=== PATIENT | male | born 1955 | race Caucasian/White ===

== ENCOUNTER 2020-08-19 01:50 | Inpatient (IN) | payer MEDICAID ==
[~2020-08-19] VITALS: Ht 170.2 cm; Wt 52.2 kg
--- NOTE | 2020-08-19 02:20 | NUR ---
Patient refused to take water for swallowing eval. Seen and examined by Dr. Espino.
[2020-08-19] MEDS ORDERED: IV NORMAL SALINE 1000 ML BAG IV ONE (02:30)
[2020-08-19 02:50] LABS: EOSINOPHILS % (AUTO) 0.4 % (0.0-7.0); HEMATOCRIT 41.4 % (36.7-47.1); HEMOGLOBIN 14.1 g/dL (12.5-16.3); LYMPHOCYTES # (AUTO) 1.7 K/uL (20.0-40.0); LYMPHOCYTES % (AUTO) 34.6 % (20.5-51.5); MEAN CORPUSCULAR HEMOGLOBIN 30.6 uug (23.8-33.4); MEAN CORPUSCULAR HGB CONC 34 g/dL (32.5-36.3); MEAN CORPUSCULAR VOLUME 90.3 fL (73.0-96.2); MONOCYTES # (AUTO) 0.3 K/uL (2.0-10.0); MONOCYTES % (AUTO) 6.8 % (0.0-11.0); NEUTROPHILS # (AUTO) 2.8 K/uL (1.8-8.9); NEUTROPHILS % (AUTO) 57.2 % (38.5-71.5); PLATELET COUNT (AUTO) 194 K/uL (152-348); RED BLOOD CELL COUNT(AUTO) 4.59 MIL/uL (4.06-5.63); WHITE BLOOD COUNT (AUTO) 4.9 K/uL (3.6-10.2)
[2020-08-19 02:52] LABS: CREATININE 1.1 mg/dL (0.6-1.3); POTASSIUM 4.3 mmol/L (3.5-5.1)
[2020-08-19 02:58] LABS: BILIRUBIN,DIRECT 0.2 mg/dL (0.0-0.2); TOTAL PROTEIN, SERUM 6.8 g/dL (6.4-8.2)
[2020-08-19] MEDS ORDERED: BUPR150T10 PO (03:32)
[2020-08-19] MEDS ORDERED: APIX5TAB PO (03:32)
[2020-08-19] MEDS ORDERED: MIRT15TA7 PO (03:32)
[2020-08-19] MEDS ORDERED: MIDO5TAB5 PO (03:32)
--- NOTE | 2020-08-19 04:15 | NUR ---
report given to juan jose about history , medications given , mental status , belongings status , sister at bedside
[2020-08-19 05:10] VITALS: BP 107/55
[2020-08-19] MEDS ORDERED: MAGNESIUM HYDROXIDE 30 ML LIQUID UDC PO PRN (05:30)
[2020-08-19] MEDS ORDERED: ZOLPIDEM 5 MG TABLET PO PRN (05:30)
[2020-08-19] MEDS ORDERED: Z GUARD REMEDY PASTE 57 GM TUBE TOP PRN (05:30)
[2020-08-19] MEDS ORDERED: ONDANSETRON 4 MG/2 ML VIAL IV PRN (05:30)
[2020-08-19] MEDS ORDERED: ACETAMINOPHEN 325 MG TABLET PO PRN (05:30)
[2020-08-19] MEDS: IV NS 1000 ML 1,000 ML IV PRN ×2 (05:41→21:17)
--- NOTE | 2020-08-19 06:08 | NUR ---
Received a 65 yr old male from ER with admitting diagnosis of dehydration and generalized weakness. Patient alert and oriented x2-3 accompanied by sister from home. Was brought in because of increasing loss of appetite, generalized weakness. Admitting diagnosis is dehydration. AAOx 2-3, patient not a good historian, dont feel like answering questions, sister able to provide answers for admission. Lungs CTA. Able to follow simple commands. Hx of depression, PE in the past and hypotension. Patient also was constipated per sister x2 wks because of not eating. On telemetry, patient sinus machelle HR 45. Skin intact with some redness on the coccyx are and bilateral heels, elevated up on pillow. Incontinent of urinex2, kept clean and dry. #20 Rt heplock, NSS started @ 75cc/hr Will monitor patient. Fall precautions maintained. Siderails up for safety. VSS.
[2020-08-19] MEDS: PANTOPRAZOLE SODIUM 40 MG TABLET.DR PO SCH (06:33)
[2020-08-19 08:09] VITALS: BP 121/62
[2020-08-19] MEDS: APIXABAN 5 MG TABLET PO SCH ×2 (08:27→16:57)
[2020-08-19] MEDS: MIDODRINE HCL 5 MG TABLET PO SCH ×2 (08:28→16:57)
[2020-08-19] MEDS ORDERED: buPROPion SR 150 MG TABLET.SA PO SCH (09:00)
[2020-08-19] MEDS ORDERED: BUPR75TA8 PO (09:45)
[2020-08-19] MEDS: buPROPion 75 MG TABLET PO SCH (11:00)
[2020-08-19 11:35] VITALS: BP 115/66
[2020-08-19 16:00] VITALS: BP 111/68
[2020-08-19 20:00] VITALS: BP 116/61
[2020-08-19] MEDS: ENOXAPARIN SODIUM 60 MG/0.6 ML DISP.SYRIN SQ SCH (20:03)
[2020-08-19] MEDS: MIRTAZAPINE 15 MG TABLET PO SCH (20:03)
[2020-08-20 04:00] VITALS: BP 92/48
--- NOTE | 2020-08-20 06:09 | NUR ---
Pt slept throughout the night. Refused all medications provided to him. Was encouraged to eat or drink some water, pt refused. Denies pain or SOB. Safety and comfort provided to patient, call light within reach. No other issues or concerns at this time, will endorse to day shift.
[2020-08-20 06:50] LABS: BASOPHILS # (AUTO) 0.1 K/uL (0.0-8.0); BASOPHILS % (AUTO) 1.3 % (0.0-2.0); EOSINOPHILS % (AUTO) 0.4 % (0.0-7.0); HEMATOCRIT 40.4 % (36.7-47.1); HEMOGLOBIN 13.6 g/dL (12.5-16.3); LYMPHOCYTES # (AUTO) 1.8 K/uL (20.0-40.0); LYMPHOCYTES % (AUTO) 36.8 % (20.5-51.5); MEAN CORPUSCULAR HEMOGLOBIN 30.5 uug (23.8-33.4); MEAN CORPUSCULAR HGB CONC 34 g/dL (32.5-36.3); MEAN CORPUSCULAR VOLUME 90.5 fL (73.0-96.2); MONOCYTES # (AUTO) 0.3 K/uL (2.0-10.0); MONOCYTES % (AUTO) 6.5 % (0.0-11.0); NEUTROPHILS # (AUTO) 2.7 K/uL (1.8-8.9); PLATELET COUNT (AUTO) 193 K/uL (152-348); RED BLOOD CELL COUNT(AUTO) 4.46 MIL/uL (4.06-5.63); WHITE BLOOD COUNT (AUTO) 4.9 K/uL (3.6-10.2)
[2020-08-20] MEDS: PANTOPRAZOLE SODIUM 40 MG TABLET.DR PO SCH (06:51)
[2020-08-20 06:55] LABS: MAGNESIUM 2.1 mg/dL (1.8-2.4)
--- NOTE | 2020-08-20 08:15 | NUR ---
RECEIVED PATIENT IN BED AWAKE ALERT TO SELF NON VERBAL ALL NEEDS ANTICIPATED AND SATISFIED TOTALLY DEPENDENT FOR ALL ADL TURNED AND REPOSITIONED Q2H FOR COMFORT.REMAIN ON IVF OF NS AT 75 ML/HR WITH S/S OF INFILTERATION AT THIS TIME.PATIENT REFUSED TO TAKE MEDICATIONS AND REFUSED TO EAT HIS BREAKFAST DESPITE ENCOURAGEMENTS AND ASSISTANCE.MENTAL UNIT CALLED BY THE ASSISTANT PROFESSOR OF FORESTRY TO REMIND THEM THAT PATIENT HAS A PSYCH EVAL WITH DR NICOLE MESSAGE LEFT WITH THE SECURITY ASSURANCE SPECIALIST.
[2020-08-20] MEDS: MIDODRINE HCL 5 MG TABLET PO SCH ×2 (08:49→16:59)
[2020-08-20] MEDS: buPROPion 75 MG TABLET PO SCH (08:49)
[2020-08-20] MEDS: ENOXAPARIN SODIUM 60 MG/0.6 ML DISP.SYRIN SQ SCH ×2 (08:49→20:41)
[2020-08-20] MEDS ORDERED: buPROPion 75 MG TABLET PO SCH (09:00)
--- NOTE | 2020-08-20 09:08 | NUR ---
PATIENT C/O ABDOMINAL PAIN MEDICATED WITH DILAUDID ORDERED MADE COMFORTABLE WILL CONTINUE TO OBSERVE. Addendum: 08/20/20 at 1515 by VANDANA CHÁVEZ RN ERROR WRONG PATIENT
--- NOTE | 2020-08-20 10:00 | NUR ---
PATIENTS SISTER HERE AND STATED WANTS TO TALK TO THE DOCTOR RE HER BROTHERS CONDITION AND I NOTIFIED HER THAT DR VO WILL BE HERE LATER SO SHE DECIDED TO [facility] AWAITING FOR RETURN CALL
[2020-08-20] MEDS: IV NS 1000 ML 1,000 ML IV PRN (10:13)
[2020-08-20] MEDS ORDERED: OLANZAPINE 10 MG VIAL IM ONE (10:30)
--- NOTE | 2020-08-20 10:30 | NUR ---
DR VO HERE SEEN PATIENT SPOKE WITH PATIENTS SISTER WITH NEW ORDERS AND NOTED.
[2020-08-20] MEDS: IV D5/ 0.9% NACL 1,000 ML IV PRN ×2 (10:48→23:58)
--- NOTE | 2020-08-20 10:48 | NUR ---
MEDICATED WITH ZYPREXA ORDERED SISTER AT THE BEDSIDE AT THIS TIME.
[2020-08-20 11:00] VITALS: BP 92/57
[2020-08-20 11:11] LABS: THYROID STIMULATING HORMONE 1.799 mIU/mL (0.358-3.740)
[2020-08-20 16:00] VITALS: BP 129/73
--- NOTE | 2020-08-20 17:33 | NUR ---
MORE AWAKE AND EYES OPEN NODING HEAD WHEN ASKED IF HE WAS COLD BUT CONTINUES TO REFUSE HIS MEDICATIONS AND MEALS AT THIS TIME STILL AWAITING FOR PATIENT TO BE SEEN AND EVALUATED BY THE PSYCHIATRIST ORDERED.
[2020-08-20 20:09] VITALS: BP 109/60
[2020-08-20] MEDS: MIRTAZAPINE 15 MG TABLET PO SCH (20:48)
--- NOTE | 2020-08-21 05:22 | NUR ---
Pt slept throughout the night. Denies pain or difficulty breathing. D/C tele and now medsurg. Encouraged patient to take medications and to eat or drink something, patient refused. Was able to get one spoonful of applesauce in patient's mouth, but he spit it out. IV intact and ordered fluids running, pt tolerating well. Bed is locked and in lowest position, call light within reach. Pt checked on periodically throughout the night. No other issues or concerns at this time, will endorse to day shift.
[2020-08-21] MEDS: PANTOPRAZOLE SODIUM 40 MG TABLET.DR PO SCH (06:20)
--- NOTE | 2020-08-21 07:41 | NUR ---
Patient sleeping but arouses to tactile stimuli. Non verbal. IV site intact and patent tolerating Iv hydration. In no acute distress. Safety maintained. Kept comfortable. Will continue to monitor.
[2020-08-21] MEDS: buPROPion 75 MG TABLET PO SCH (09:00)
[2020-08-21] MEDS: MIDODRINE HCL 5 MG TABLET PO SCH ×2 (09:00→17:00)
[2020-08-21] MEDS: ENOXAPARIN SODIUM 60 MG/0.6 ML DISP.SYRIN SQ SCH ×2 (09:00→15:25)
[2020-08-21 09:10] VITALS: BP 110/66
--- NOTE | 2020-08-21 09:50 | NUR ---
Patient refused medications this morning despite encouragement from staff. Risks and benefits explained but patient keep shaking his head.
--- NOTE | 2020-08-21 10:34 | NUR ---
Left voicemail for Dr. Lei psych to come see the patient as soon as possible. Will follow up.
[2020-08-21 11:57] VITALS: BP 123/71
[2020-08-21] MEDS ORDERED: OLANZAPINE ZYDIS 5 MG TAB.RAPDIS PO SCH (12:15)
[2020-08-21] MEDS ORDERED: OLANZAPINE 10 MG VIAL IM PRN (12:15)
[2020-08-21] MEDS: OLANZAPINE ZYDIS 5 MG TAB.RAPDIS PO SCH ×3 (12:46→21:00)
[2020-08-21] MEDS: IV D5/ 0.9% NACL 1,000 ML IV PRN (15:20)
--- NOTE | 2020-08-21 15:33 | NUR ---
Sister is visiting the patient and requested to give patient's lovenox. Patient agreed.
[2020-08-21 16:00] VITALS: BP 121/71
--- NOTE | 2020-08-21 19:20 | NUR ---
Patient awake and responsive. In no acute distress. LAC IV site intact and patent Iv hydration tolerated. Patient refused dinner despite encouragement from staff. Patient refused medications despite encouragement from both sister and staff. Patient sleeps on and off. No episode of agitation. Safety measures maintained. Patient is comfortable. Needs attended. Endorsed accordingly.
[2020-08-21 20:00] VITALS: BP 109/66
--- NOTE | 2020-08-21 21:00 | NUR ---
PATIENT AWAKE VERBALLY RESPONSIVE, GIVEN PO MEDICATIONS, BUT SPITS OUT, REFUSED MEDICATIONS. PATIENT VERY DEPRESSED, SISTER AT BEDSIDE, AWAKE OF PATIENT NON COMPLIANT WITH MEDICATIONS, AND REFUSING TO EAT. CONT TO MONITOR.
[2020-08-22] MEDS: ENOXAPARIN SODIUM 60 MG/0.6 ML DISP.SYRIN SQ SCH ×3 (00:43→20:06)
[2020-08-22] MEDS: IV D5/ 0.9% NACL 1,000 ML IV PRN ×2 (03:00→18:04)
[2020-08-22 04:03] VITALS: BP 107/57
--- NOTE | 2020-08-22 05:36 | NUR ---
PATIENT SLEEP INTERMITTENTLY, DENIES ANY PAIN AT THIS TIME. PATIENT HARDLY ANSWER OR INTERACT WITH STAFF. PATIENT USES URINAL FOR BLADDER ELIMINATIONS, PATIENT SPOKE TO THE BUS COMPANY MANAGER IN PORTUGUESE LANGUAGE STATING THAT "YOU GUYS DON'T UNDERSTAND ME AND I CANNOT EXPLAIN WHAT HE GOING THROUGH", PATIENT EXHIBIT WITHDRAWN BEHAVIOR, CONT TO MONITOR.
--- NOTE | 2020-08-22 05:56 | NUR ---
PATIENT CONTINUE TO REFUSE MEDICATIONS, OPEN HIS MOUTH BUT SPITS OUT MEDICATIONS, EXPLAINED RISK AND BENEFIT BUT NOT EFFECTIVE, CONT TO ENCOURAGE.
[2020-08-22] MEDS: PANTOPRAZOLE SODIUM 40 MG TABLET.DR PO SCH (06:14)
[2020-08-22 06:38] LABS: BASOPHILS % (AUTO) 0.9 % (0.0-2.0); EOSINOPHILS % (AUTO) 0.9 % (0.0-7.0); HEMATOCRIT 46.1 % (36.7-47.1); HEMOGLOBIN 15.5 g/dL (12.5-16.3); LYMPHOCYTES % (AUTO) 40.8 % (20.5-51.5); MEAN CORPUSCULAR HEMOGLOBIN 30.4 uug (23.8-33.4); MEAN CORPUSCULAR HGB CONC 34 g/dL (32.5-36.3); MEAN CORPUSCULAR VOLUME 90.4 fL (73.0-96.2); MONOCYTES # (AUTO) 0.3 K/uL (2.0-10.0); MONOCYTES % (AUTO) 6.5 % (0.0-11.0); NEUTROPHILS # (AUTO) 2.5 K/uL (1.8-8.9); NEUTROPHILS % (AUTO) 50.9 % (38.5-71.5); PLATELET COUNT (AUTO) 160 K/uL (152-348); RED BLOOD CELL COUNT(AUTO) 5.09 MIL/uL (4.06-5.63)
[2020-08-22 06:57] LABS: BILIRUBIN,TOTAL 0.9 mg/dL (0.2-1.0); CREATININE 0.9 mg/dL (0.6-1.3); MAGNESIUM 1.9 mg/dL (1.8-2.4); PHOSPHOROUS 2.4 mg/dL (2.5-4.9); POTASSIUM 3.2 mmol/L (3.5-5.1); TOTAL PROTEIN, SERUM 5.9 g/dL (6.4-8.2)
--- NOTE | 2020-08-22 07:40 | NUR ---
Patient alert and oriented, awake, depressed and guarded refusing to answer questions. In no acute distress. Iv hydration ongoing tolerated. No agitation noted. Safety measures maintained. Kept comfortable. Call light in reach. Will continue to monitor.
[2020-08-22 08:39] VITALS: BP 106/70
[2020-08-22] MEDS: OLANZAPINE ZYDIS 5 MG TAB.RAPDIS PO SCH ×2 (08:42→17:00)
[2020-08-22] MEDS: MIDODRINE HCL 5 MG TABLET PO SCH ×2 (08:47→17:00)
[2020-08-22] MEDS: VENLAFAXINE XR 75 MG TAB.ER.24H PO SCH (08:47)
[2020-08-22] MEDS ORDERED: POTASSIUM CHLORIDE 20 MEQ TAB.PRT.SR PO ONE (09:30)
--- NOTE | 2020-08-22 09:43 | NUR ---
Patient refused breakfast this morning. Encouraged by staff but only took a small sip of water. Patient agreed to take zyprexa and lovenox this morning but refused the rest of his medications. Continue to be monitored.
[2020-08-22] MEDS: POTASSIUM CHLORIDE 50 ML IV SCH ×4 (11:48→15:09)
--- NOTE | 2020-08-22 11:50 | NUR ---
Seen and examined by Dr. Del Toro with new orders noted.
[2020-08-22] MEDS ORDERED: OLANZAPINE ZYDIS 5 MG TAB.RAPDIS PO SCH (12:00)
--- NOTE | 2020-08-22 15:43 | NUR ---
Clinical Social Work Note Discussed case with Dr Del Toro who consulted on the case. Patient is regressed and has some psychotic symptoms for which he is being prescribed Zyprexa. Tried to speak with patient who is withdrawn and not very communicative. Patient is unlikely to be accepted at an adult psychiatric facility due to his poor labs. and poor intake. Patient will need to go home with family once he starts to improve. Medication regimen can be continued at home with family. Since patient will not cooperate with evaluation it is unclear if he is depressed vs schizophrenic. Family are supportive so need to care for him at home once he is medically stable. Patient will be referred to outpatient facilities. If he wants voluntary treatment at [facility] at some point, this can be considered. He has not epxressed suicidal ideation so is not meeting danger to self criteria. Presentation is similar to that of schizophrenia based on limited information. Major depression with psychotic features has not been ruled out. Patient will not be accepted at an adult psychiatric unit for several reasons. Plan: Discharge home under family supervision once patient is medically clear. Patient will need outpatient psychiatric follow up to monitor medication.
[2020-08-22] MEDS ORDERED: NEUTRA PHOS PACKET PO ONE (15:45)
--- NOTE | 2020-08-22 15:46 | NUR ---
Estate Planner note: 2:40pm: This social science instructor was informed that patient's sister Rosy wanted to speak with this social science instructor. This International Student Counselor met with Rosy, who had some questions about conservatorship and Medicare. Rosy stated that she is patient's POA, but also wanted to apply for conservatorship. This social science instructor asked for a copy of the patient's healthcare directive, and Rosy stated she will bring the healthcare directive tomorrow. This social science instructor stated that if Rosy is POA, then conservatorship may not be necessary, but this social science instructor can still provide information, if necessary. This social science instructor will also provide Rosy with information on Medicare benefits and how to apply. Rosy stated that patient was brought to the ED on 08/19/20. Per ED physician's notes, patient's family decided to call 911 after the patient had not been eating for a month,, had gotten weak and had lost weight. Rosy stated that patient was living in [place] and had his own business, was independent. Rosy stated that last July, patient lost his business and that caused him to get depressed. Rosy stated that she moved the patient out to [place] over the summer in order to take care of him, and that patient has been living with his sister. Patient has had recent hospitalizations, most recently at [facility] for PE. Rosy stated stated that for the past 3 months, patient has been receiving psychiatric care for Depression by Dr. Bright at [facility], . Patient is , and does not have any children. Besides Rosy, patient has a brother in [facility], and another brother who lives locally but they are estranged from. Patient's mother, who is in her 90's, is also alive and lives with the brother that patient is estranged from. Patient's sister Rosy requested to speak with patient's physician. This social science instructor informed aletha Keller of this request. PLAN: This social science instructor will obtain a copy of patient's healthcare directive from patient's sister. This social science instructor will provide patient's sister with information on Medicare and conservatorship.
[2020-08-22 16:00] VITALS: BP 115/67
--- NOTE | 2020-08-22 19:25 | NUR ---
Patient resting in bed awake and responsive to stimuli. No respiratory distress. Denies pain or discomfort. Patient's sister has been visiting him since lunch time and continue to encourage him to eat but he refuses. He ate 2 ice cream for lunch but nothing else after. Patient refused pm medications. Risks and benefits explained. IV on left ac ongoing and tolerated. In no acute distress. Endorsed accordingly.
[2020-08-22 20:00] VITALS: BP 113/77
--- NOTE | 2020-08-22 20:30 | NUR ---
Received patient in bed resting. Sister at bedside. Awake and alert, pressures speech and flat affect. Compliant with Lovenox injection. Denies pain and discomfort at this time. Left AC IV patent and intact. Safety measures in place.
[2020-08-23 05:20] VITALS: BP 115/68
[2020-08-23] MEDS: PANTOPRAZOLE SODIUM 40 MG TABLET.DR PO SCH (06:19)
[2020-08-23 09:46] VITALS: BP 108/68
[2020-08-23] MEDS: OLANZAPINE ZYDIS 5 MG TAB.RAPDIS PO SCH ×2 (09:48→12:43)
[2020-08-23] MEDS: VENLAFAXINE XR 75 MG TAB.ER.24H PO SCH (09:48)
[2020-08-23] MEDS: MIDODRINE HCL 5 MG TABLET PO SCH ×2 (09:48→17:25)
[2020-08-23] MEDS: ENOXAPARIN SODIUM 60 MG/0.6 ML DISP.SYRIN SQ SCH ×2 (09:52→20:54)
[2020-08-23] MEDS: MEGESTROL ACETATE 400 MG/10 ML LIQUID UDC PO SCH (09:59)
--- NOTE | 2020-08-23 11:10 | NUR ---
received report on pt, in bed resting, on room air, no signs of distress, no reports of pain at this time, call light within reach, family at bedside. bed low and locked, pt has been refusing medications per RN. will continue with plan of care
[2020-08-23 11:33] VITALS: BP 119/72
[2020-08-23 14:01] LABS: CREATININE 0.8 mg/dL (0.6-1.3); POTASSIUM 3.7 mmol/L (3.5-5.1)
--- NOTE | 2020-08-23 14:54 | NUR ---
Service Rig Operator note: This JOURNALISM INTERNSHIP followed up with patient's sister Rosy today. Rosy brought in a copy of patient's healthcare directive, and this JOURNALISM INTERNSHIP placed a copy of it in patient's chart. This JOURNALISM INTERNSHIP also discussed discharge plans with the patient's sister, and patient's sister stated that she would want for patient to be transferred to an inpatient psychiatric hospital. This JOURNALISM INTERNSHIP discussed with patient's sister the eligibility criteria for an inpatient psychiatric hospital, and informed the sister that at this time patient's level of care is penitentiary and therefore he would not qualify for inpatient psychiatric hospitalization in his current condition. Patient's sister also discussed obtaining additional health insurance, such as Medicare, and this JOURNALISM INTERNSHIP provided patient with information on how to apply for Medicare, and www.socialsecurity.gov. Patient's sister also stated that she would look into other private insurance too. This JOURNALISM INTERNSHIP discussed alternative discharge options, given patient's level of care needs at this time, and patient's sister stated that she would not want patient to go to a SNF or any other facility, but instead she will be taking the patient home. Above information was relayed to B2B Managed Service Sales Exec Cristina and SS Director Karley Cao. Service Rig Operator will continue to remain available.
--- NOTE | 2020-08-23 15:06 | NUR ---
Clinical Social Work Note Met with patient who is somewhat more responsive than yesterday. Patient's sister was present in the room and reports that pt was on Latuda in the past and then Wellbutrin ( unknown dose). He did well on the latter medication. She says patient is suspicious of any food that is not sealed. he " does not want anything that has been touched". Sister say she wants to take patient home when he is discharged. She asked how to apply for Medicare and this rewriter gave her the [phone] number to apply by phone. Spoke with Dr Del Toro who ordered Zyprexa IM since pt is spitting out Zydis per Yu RN. Patient clearly is paranoid but alert and oriented x3. he does not appear to be responding to internal stimuli at time of evaluation. Pt is [place] but speaks fluent [place]. Sister is caring and involved. She says pt sees Dr Rizo at [facility] ([phone]) and would like Dr Del Toro to speak with him. Advised Dr Del Toro of this.
[2020-08-23] MEDS: OLANZAPINE 10 MG VIAL IM SCH ×2 (15:09→21:02)
[2020-08-23 15:40] VITALS: BP 105/71
[2020-08-23] MEDS: NUTRISOURCE FIBER 4 GM PACKET PO SCH (17:25)
--- NOTE | 2020-08-23 18:46 | NUR ---
pt resting in bed, ate 25% of his dinner and medications were given as ordered. Sister, Rosy, is at bedside. pt a/ox2, pt on urvashi air, no signs of distress, no reports of pain at this time. pt takes medications crushed and given with food. pt voids via urinal at bedside, IV access on the left AC infusing D5NS at 80cc. all medications given as ordered, call light within reach, bed low and locked, safety precautions in place, will endorse to oncoming nurse.
--- NOTE | 2020-08-23 19:30 | NUR ---
Received patient lying in bed. AOx2-3 only with periods of confusion. Denies any pain or SOB. Still withdrawn. IV site on right FA intact and patent. IVF infusing. Needs assessed and attended to. Safety measure initiated and call bel within reached. Continue to monitor.
[2020-08-23 20:05] VITALS: BP 101/61
--- NOTE | 2020-08-23 20:55 | NUR ---
Patient sister into visit and brought dome belongings and placed on belongings list by PEG Quintanilla.
[2020-08-23] MEDS: IV D5/ 0.9% NACL 1,000 ML IV PRN (22:21)
[2020-08-24 04:10] VITALS: BP 114/64
[2020-08-24] MEDS: PANTOPRAZOLE SODIUM 40 MG TABLET.DR PO SCH (06:00)
--- NOTE | 2020-08-24 06:13 | NUR ---
Patient AOx2-3 with periods of confusion. In no acute distress. Denies any pain or SOB. IV site on right FA remains intact and patent. Needs assessed and attended to. Safety measure maintained and call martinez within reached.
[2020-08-24 06:52] LABS: BASOPHILS % (AUTO) 1.2 % (0.0-2.0); EOSINOPHILS % (AUTO) 0.8 % (0.0-7.0); HEMATOCRIT 43.6 % (36.7-47.1); HEMOGLOBIN 14.4 g/dL (12.5-16.3); LYMPHOCYTES # (AUTO) 1.9 K/uL (20.0-40.0); LYMPHOCYTES % (AUTO) 44.3 % (20.5-51.5); MEAN CORPUSCULAR HGB CONC 33 g/dL (32.5-36.3); MEAN CORPUSCULAR VOLUME 90.9 fL (73.0-96.2); MONOCYTES # (AUTO) 0.3 K/uL (2.0-10.0); MONOCYTES % (AUTO) 6.5 % (0.0-11.0); NEUTROPHILS % (AUTO) 47.2 % (38.5-71.5); PLATELET COUNT (AUTO) 157 K/uL (152-348); WHITE BLOOD COUNT (AUTO) 4.3 K/uL (3.6-10.2)
[2020-08-24 07:08] LABS: CREATININE 0.8 mg/dL (0.6-1.3); MAGNESIUM 1.9 mg/dL (1.8-2.4); PHOSPHOROUS 2.4 mg/dL (2.5-4.9); POTASSIUM 3.1 mmol/L (3.5-5.1)
--- NOTE | 2020-08-24 07:45 | NUR ---
Patient received in bed with eyes open and is speaking to himself in various languages. Alert and oriented x2. Patient is on RA with no shortness of breath or difficulty breathing. Patient has a right forearm 20G running D5NS at 80 ml/h as ordered with no s/s of redness or swelling. Bed alarm is on and fall precautions are in place. Patient states he has no discomforts at this time. Call martinez and personal belongings within easy reach. Will continue to monitor.
[2020-08-24] MEDS: VENLAFAXINE XR 75 MG TAB.ER.24H PO SCH (08:35)
[2020-08-24] MEDS: OLANZAPINE 10 MG VIAL IM SCH (08:44)
[2020-08-24] MEDS: ENOXAPARIN SODIUM 60 MG/0.6 ML DISP.SYRIN SQ SCH ×2 (08:50→20:24)
--- NOTE | 2020-08-24 08:50 | NUR ---
Pt refused oral meds this morning. Was educated on the medications, but continued to refuse. Pt barely ate any of his breakfast and was encouraged to eat and drink more. Patients sister called and stated that she will be coming in later and that she will try to feed him. Informed kitchen that patient requires packaged food, as he will refuse any food that is not fully sealed.
[2020-08-24] MEDS: MIDODRINE HCL 5 MG TABLET PO SCH ×2 (08:57→17:00)
[2020-08-24] MEDS: NUTRISOURCE FIBER 4 GM PACKET PO SCH ×4 (08:58→17:00)
[2020-08-24] MEDS: MEGESTROL ACETATE 400 MG/10 ML LIQUID UDC PO SCH (08:59)
[2020-08-24] MEDS: POTASSIUM CHLORIDE 20 MEQ TAB.PRT.SR PO SCH ×3 (11:11→12:16)
[2020-08-24] MEDS: IV D5/ 0.9% NACL 1,000 ML IV PRN (11:24)
[2020-08-24 11:49] VITALS: BP 107/60
[2020-08-24] MEDS: NEUTRA PHOS PACKET PO ONE ×2 (12:00→12:16)
--- NOTE | 2020-08-24 13:00 | NUR ---
patient refused oral meds tried to give but spit them out. was educated regarding importance of meds, but still refused them. sister at bedside. call light within reach will continue to monitor. seen by Dr. Del Toro with new orders.
[2020-08-24] MEDS: HALOPERIDOL LACTATE 5 MG/1 ML VIAL IM SCH ×3 (15:15→20:23)
[2020-08-24 15:53] VITALS: BP 112/63
--- NOTE | 2020-08-24 18:34 | NUR ---
pt stood up out of bed 4 times in the past hour, pt unsure of what he wanted and would sit back in bed. this last time, pt asked to use the restroom. pt walked to restroom slowly with RN assist, and pt also brushed his own teeth. bed low and locked, family at bedside, bed alarm on. will continue to monitor.
--- NOTE | 2020-08-24 18:42 | NUR ---
patient awake in bed, no complains of any pain or discomfort, no sob noted at this time. safety precautions in place. call light kept within reach. will report to oncoming nurse.
--- NOTE | 2020-08-24 19:30 | NUR ---
AOx2-3 only with periods of confusion. Sister at bedside. Denies any pain or SOB. IV site on right FA intact and patent. IVF infusing. Needs assessed and attended to. Safety measure initiated and call bel within reached. Continue to monitor.
[2020-08-24 20:05] VITALS: BP 107/63
[2020-08-25] MEDS: IV D5/ 0.9% NACL 1,000 ML IV PRN ×2 (00:08→12:48)
[2020-08-25 04:05] VITALS: BP 134/81
[2020-08-25 05:41] LABS: BASOPHILS # (AUTO) 0.1 K/uL (0.0-8.0); BASOPHILS % (AUTO) 1.2 % (0.0-2.0); EOSINOPHILS % (AUTO) 0.7 % (0.0-7.0); HEMATOCRIT 40.7 % (36.7-47.1); HEMOGLOBIN 13.5 g/dL (12.5-16.3); LYMPHOCYTES # (AUTO) 1.7 K/uL (20.0-40.0); LYMPHOCYTES % (AUTO) 34.7 % (20.5-51.5); MEAN CORPUSCULAR HEMOGLOBIN 30.1 uug (23.8-33.4); MEAN CORPUSCULAR HGB CONC 33 g/dL (32.5-36.3); MEAN CORPUSCULAR VOLUME 90.4 fL (73.0-96.2); MONOCYTES # (AUTO) 0.3 K/uL (2.0-10.0); MONOCYTES % (AUTO) 6.4 % (0.0-11.0); NEUTROPHILS # (AUTO) 2.9 K/uL (1.8-8.9); PLATELET COUNT (AUTO) 156 K/uL (152-348)
[2020-08-25 05:49] LABS: CREATININE 0.8 mg/dL (0.6-1.3); MAGNESIUM 1.8 mg/dL (1.8-2.4); PHOSPHOROUS 2.6 mg/dL (2.5-4.9); POTASSIUM 3.7 mmol/L (3.5-5.1)
[2020-08-25] MEDS: PANTOPRAZOLE SODIUM 40 MG TABLET.DR PO SCH (06:04)
--- NOTE | 2020-08-25 06:21 | NUR ---
Patient AOx2-3 with periods of confusion and some anxiety but easily redirected. In no acute distress. Denies any pain or SOB. IV site on right FA remains intact and patent. IVF infusing. Due meds taken. Needs assessed and attended to. Safety measure maintained and call martinez within reached.
[2020-08-25] MEDS: HALOPERIDOL LACTATE 5 MG/1 ML VIAL IM SCH ×3 (08:05→16:38)
[2020-08-25] MEDS: VENLAFAXINE XR 75 MG TAB.ER.24H PO SCH (08:05)
[2020-08-25] MEDS: MIDODRINE HCL 5 MG TABLET PO SCH ×2 (08:10→16:38)
[2020-08-25] MEDS: ENOXAPARIN SODIUM 60 MG/0.6 ML DISP.SYRIN SQ SCH ×2 (08:20→20:59)
[2020-08-25] MEDS: NUTRISOURCE FIBER 4 GM PACKET PO SCH ×3 (08:21→16:43)
[2020-08-25] MEDS: MEGESTROL ACETATE 400 MG/10 ML LIQUID UDC PO SCH (08:21)
--- NOTE | 2020-08-25 09:05 | NUR ---
Patient agrees to take AM PO tablet medication, drank half of liquid PO medication and refused the rest. Discussed importance of medication to patient. Patient adamantly refuse. Medication wasted at proper receptacle.
--- NOTE | 2020-08-25 10:16 | NUR ---
Patient's sister at bedside. Sister requested for cottage cheese and fruit so she can try to feed patient RE: low appetite and refused breakfast. Called kitchen to see if we can accommodate. Will bring up as soon as possible.
--- NOTE | 2020-08-25 10:40 | NUR ---
Checked in with patient and sister if he agrees to eat with her. Sister states that he still refuses to eat anything she offers. Will continue to monitor. Physical therapy at bedside at this time.
[2020-08-25 11:13] VITALS: BP 133/81
--- NOTE | 2020-08-25 11:27 | NUR ---
Clinical Social Work Note Pt. is now talking and makes eye contact with this securities underwriter but remains paranoid about his food. He stated " it is nasty". He admits he is also suspicious about the food. Sister is DPOA and spoke with brother in [place] who states he is a psychiatrist there with no license in [place]. Sister brought cell phone to this securities underwriter's office with brother on the phone. He is requesting a PEG and says sister VILMA will consent to this. He feels his brother has lost perspective due to his food refusal and psychosis. Patient may also be in a delirium due to his lack of intake. Advised Kimberly, director, re this. marley child welfare caseworker is aware. Advised Dr Marie that brother and DPOA want PEG and he agreed to order GI consult for this. Also discussed the case with Dr Del Toro who will see patient today. Patient has no insight and says he does not want to but that he cannot tolerate any food in his mouth. Plan: Case management will follow up on GI consult. Sister is refusing SNF placement and will take patient home once he is medically clear. She is DPOA so her wishes need to be considered.
[2020-08-25] MEDS ORDERED: diphenhydrAMINE 50 MG/1 ML VIAL IM PRN (12:00)
[2020-08-25 15:30] VITALS: BP 101/59
--- NOTE | 2020-08-25 16:44 | NUR ---
Patient remains with flat affect, more cooperative and took 1700 PO medication. Nutrisource packet mixed with cup of water left at bedside. Patient verbalized agreement that he will take a couple of sips at a time. Will continue to monitor.
--- NOTE | 2020-08-25 17:19 | NUR ---
Brought dinner tray to patient's room and assist in getting patient ready to eat. Came back after five minutes to check on patient, patient states, "I don't want any of this." And pushed side table away. Offered to come back and assist patient in 30 minutes. Will follow up and continue to monitor.
--- NOTE | 2020-08-25 17:50 | NUR ---
Patient attempting to get out of bed and pulling on his IV line. Able to be redirected back to bed and offered to assist patient with dinner again. Patient still refuses to eat. Patient verbalizes "feeling fear." Asked patient what is making him "feel fear," patient states, "the outside..." Patient proceeds to speak about taking a shower and stops abruptly, laid back down in bed and states he will nap. Will closely monitor patient at bedside for fall precaution. Bed alarm on, call light within reach. Safety precautions in place.
--- NOTE | 2020-08-25 18:31 | NUR ---
Sister at bedside. Brought some food from home and assisting patient with eating. Patient accepts some bites of food from sister. Refuses to eat anything from the dinner tray except drinks some of bottled water. Will continue to monitor.
--- NOTE | 2020-08-25 20:11 | NUR ---
Patient in bed alert with periods of confusion.Denies pain , no facial grimaces of discomfort.On s/s of distress noted.On RA.Iv on right FA 20g patent and intact with IVF running well.Held Lovenox at this time per MD Chacko.Patient NPO after midnight for EGD peg tomorrow.Sister at bedside.Continue safety measures.Will continue to monitor.
[2020-08-25 20:37] VITALS: BP 92/51
--- NOTE | 2020-08-25 23:40 | NUR ---
Patient noted to get agitated.Trying to get of bed and pulling out his IV.Re oriented and re-directed patient.Ambien given with no effect. Sister at bedside,stated she will stay for few hours until he gets calm .She further stated if he continues to get agitated then She doesn't want him to have the procedure in [place]. Tylenol given with good effect. Continue safety measures.
[2020-08-26] MEDS: IV D5/ 0.9% NACL 1,000 ML IV PRN ×2 (02:00→15:45)
[2020-08-26 04:00] VITALS: BP 96/56
[2020-08-26 05:47] LABS: BASOPHILS # (AUTO) 0.1 K/uL (0.0-8.0); BASOPHILS % (AUTO) 1.1 % (0.0-2.0); EOSINOPHILS # (AUTO) 0.1 K/uL (0.0-0.7); EOSINOPHILS % (AUTO) 1.3 % (0.0-7.0); HEMATOCRIT 35.3 % (36.7-47.1); HEMOGLOBIN 12.1 g/dL (12.5-16.3); LYMPHOCYTES # (AUTO) 1.9 K/uL (20.0-40.0); LYMPHOCYTES % (AUTO) 39.7 % (20.5-51.5); MEAN CORPUSCULAR HEMOGLOBIN 30.9 uug (23.8-33.4); MEAN CORPUSCULAR HGB CONC 34 g/dL (32.5-36.3); MEAN CORPUSCULAR VOLUME 90.1 fL (73.0-96.2); MONOCYTES # (AUTO) 0.4 K/uL (2.0-10.0); MONOCYTES % (AUTO) 7.5 % (0.0-11.0); NEUTROPHILS # (AUTO) 2.4 K/uL (1.8-8.9); NEUTROPHILS % (AUTO) 50.4 % (38.5-71.5); PLATELET COUNT (AUTO) 143 K/uL (152-348); RED BLOOD CELL COUNT(AUTO) 3.91 MIL/uL (4.06-5.63); WHITE BLOOD COUNT (AUTO) 4.7 K/uL (3.6-10.2)
[2020-08-26 06:06] LABS: BILIRUBIN,TOTAL 0.3 mg/dL (0.2-1.0); CREATININE 0.8 mg/dL (0.6-1.3); MAGNESIUM 1.9 mg/dL (1.8-2.4); PHOSPHOROUS 2.7 mg/dL (2.5-4.9); POTASSIUM 3.3 mmol/L (3.5-5.1); TOTAL PROTEIN, SERUM 5.3 g/dL (6.4-8.2)
--- NOTE | 2020-08-26 06:26 | NUR ---
Patient calm in no acute distress noted. Resting in bed comfortably.MD Rae made aware of his behavior, order received for1:1 sitter .Strategic Planner made aware.
[2020-08-26] MEDS: PANTOPRAZOLE SODIUM 40 MG TABLET.DR PO SCH ×2 (06:41→06:57)
--- NOTE | 2020-08-26 07:07 | NUR ---
Patient's sister wants to talk to the surgeon prior to the procedure. Will endorse to oncoming shift.
--- NOTE | 2020-08-26 07:30 | NUR ---
Received patient in bed sleeping. Patient is restless and agitated. Patient has a 1:[address] Patient is on room air. No sign of respiratory distress noted. Safety precautions are in place. Will continue to monitor.
[2020-08-26 07:48] VITALS: BP 110/92
[2020-08-26] MEDS: MEGESTROL ACETATE 400 MG/10 ML LIQUID UDC PO SCH ×2 (08:53→09:00)
--- NOTE | 2020-08-26 08:53 | NUR ---
Spoke with sister who is DPOA. She requested that patient not be given Haldol because he is agitated on the medication. She is also requesting that PEG placement be delayed until patient is not agitated any longer before doing surgery. Will make MD aware. Will continue to monitor.
[2020-08-26] MEDS: NUTRISOURCE FIBER 4 GM PACKET PO SCH ×4 (08:54→17:00)
[2020-08-26] MEDS: VENLAFAXINE XR 75 MG TAB.ER.24H PO SCH (08:54)
[2020-08-26] MEDS: MIDODRINE HCL 5 MG TABLET PO SCH ×3 (08:54→17:00)
[2020-08-26] MEDS: HALOPERIDOL LACTATE 5 MG/1 ML VIAL IM SCH ×3 (08:54→17:00)
[2020-08-26] MEDS: ENOXAPARIN SODIUM 60 MG/0.6 ML DISP.SYRIN SQ SCH ×2 (08:56→20:09)
--- NOTE | 2020-08-26 09:02 | NUR ---
lovenox given, platelets at 143. spoke to pharmacist regarding platelets and said it was ok to give and hold only if under 100.
[2020-08-26] MEDS ORDERED: POTASSIUM CHLORIDE 50 ML IV SCH (09:30)
[2020-08-26] MEDS: POTASSIUM CHLORIDE 10 MEQ, LIDOCAINE-MPF 1% 1 ML in IV DEXTROSE 5% 100 ML IV SCH ×2 (10:57→12:04)
[2020-08-26 12:00] VITALS: BP 105/60
[2020-08-26] MEDS ORDERED: PROPOFOL 200 MG/20 ML BOTTLE IV ONE (12:07)
[2020-08-26] MEDS ORDERED: ETOMIDATE 20 MG/10 ML VIAL MC ONE (12:07)
[2020-08-26] MEDS ORDERED: EPHEDRINE SULFATE 50 MG/ML AMPUL MC ONE (12:07)
[2020-08-26 15:34] VITALS: BP 123/62
--- NOTE | 2020-08-26 16:31 | NUR ---
report and consent form given to surgery department. patient awake no complain of any pain or discomfort, made patient aware he was going to surgery, sister at bedside, patient transferred to surgery at this time.
[2020-08-26] MEDS ORDERED: MIDAZOLAM HCL 2 MG/2 ML VIAL ONE ×2 (16:39→17:02)
[2020-08-26] MEDS ORDERED: CLINDAMYCIN PHOSPHATE 600 MG/4 ML VIAL ONE (17:10)
--- NOTE | 2020-08-26 18:20 | NUR ---
1809 patient arrived from surgery, patient sleeping but arousable to name, vitals stable 114/64, hr 60, saturation at 99%. no signs of any pain or discomfort, on room air. call light within reach. safety precautions in place. 1:1 sitter and sister at bedside. will report to oncoming nurse.
[2020-08-26 19:54] VITALS: BP 111/82
[2020-08-27 04:26] VITALS: BP 94/56
[2020-08-27] MEDS: IV D5/ 0.9% NACL 1,000 ML IV PRN ×2 (05:15→20:38)
[2020-08-27 06:03] LABS: BASOPHILS % (AUTO) 0.5 % (0.0-2.0); EOSINOPHILS % (AUTO) 0.2 % (0.0-7.0); HEMATOCRIT 35.9 % (36.7-47.1); HEMOGLOBIN 12.1 g/dL (12.5-16.3); LYMPHOCYTES # (AUTO) 1.1 K/uL (20.0-40.0); LYMPHOCYTES % (AUTO) 16.9 % (20.5-51.5); MEAN CORPUSCULAR HEMOGLOBIN 30.8 uug (23.8-33.4); MEAN CORPUSCULAR HGB CONC 34 g/dL (32.5-36.3); MEAN CORPUSCULAR VOLUME 91.1 fL (73.0-96.2); MONOCYTES # (AUTO) 0.4 K/uL (2.0-10.0); MONOCYTES % (AUTO) 5.6 % (0.0-11.0); NEUTROPHILS % (AUTO) 76.8 % (38.5-71.5); PLATELET COUNT (AUTO) 156 K/uL (152-348); RED BLOOD CELL COUNT(AUTO) 3.94 MIL/uL (4.06-5.63); WHITE BLOOD COUNT (AUTO) 6.5 K/uL (3.6-10.2)
[2020-08-27 06:28] LABS: BILIRUBIN,TOTAL 0.9 mg/dL (0.2-1.0); CREATININE 0.8 mg/dL (0.6-1.3); MAGNESIUM 1.8 mg/dL (1.8-2.4); PHOSPHOROUS 2.7 mg/dL (2.5-4.9); POTASSIUM 3.4 mmol/L (3.5-5.1); TOTAL PROTEIN, SERUM 5.4 g/dL (6.4-8.2)
[2020-08-27] MEDS: PANTOPRAZOLE SODIUM 40 MG TABLET.DR PO SCH (06:28)
--- NOTE | 2020-08-27 06:28 | NUR ---
Pt slept throughout the night. No distress noted. 1:1 at bedside. Dressing on PEG placement noted to be saturated in blood around 2200H. Dressing changed and pressure dressing applied. Around 0230H dressing saturated in blood again. Dressing changed and pressure dressing applied again. Toby Mulligan notified with orders to monitor bleeding and continue with pressure dressing. Tube feeding not started on this shift in order to monitor bleeding and monitor PEG site. Protonix this AM held. Will endorse to day shift to continue monitoring for bleeding and if none then to start tube feeding. Bed is locked and in lowest position. IV site patent and running ordered fluids. Safety and comfort provided. No other issues or concerns at this time, will endorse all events to oncoming nurse.
--- NOTE | 2020-08-27 07:30 | NUR ---
Received patient in bed sleeping. Patient is withdrawn with a flat affect. Patient has family at bedside. Patient is on room air. No sign of respiratory distress noted. Patient's PEG tube placement is dry and intact. PEG tube flushes and is intact. Safety precautions are in place. Will continue to monitor.
[2020-08-27] MEDS ORDERED: JEVITY 1.2 1000 ML LIQUID GT PRN (08:00)
[2020-08-27] MEDS: HALOPERIDOL LACTATE 5 MG/1 ML VIAL IM SCH ×3 (09:00→17:00)
--- NOTE | 2020-08-27 09:00 | NUR ---
Started tube feeding with Jevity 1.2 Rate starting at 10mls/hr. No residuals noted. Dr Merino' s ordered okayed to give medications through PEG tube. Will continue to monitor.
[2020-08-27] MEDS ORDERED: ZOLPIDEM 5 MG TABLET PEG PRN (09:14)
[2020-08-27] MEDS ORDERED: MAGNESIUM HYDROXIDE 30 ML LIQUID UDC PEG PRN (09:14)
[2020-08-27] MEDS: MIDODRINE HCL 5 MG TABLET PO SCH (09:23)
[2020-08-27] MEDS: VENLAFAXINE XR 75 MG TAB.ER.24H PO SCH (09:23)
[2020-08-27] MEDS: ENOXAPARIN SODIUM 60 MG/0.6 ML DISP.SYRIN SQ SCH ×2 (09:26→20:44)
[2020-08-27] MEDS: MEGESTROL ACETATE 400 MG/10 ML LIQUID UDC PO SCH (09:28)
[2020-08-27] MEDS ORDERED: ACETAMINOPHEN 650 MG/20.3 ML LIQUID UDC PEG PRN (09:30)
[2020-08-27] MEDS: POTASSIUM CHLORIDE 10 MEQ, LIDOCAINE-MPF 1% 1 ML in IV DEXTROSE 5% 100 ML IV SCH ×2 (10:49→12:03)
[2020-08-27 11:50] VITALS: BP 90/46
[2020-08-27] MEDS: NUTRISOURCE FIBER 4 GM PACKET PEG SCH ×2 (13:38→17:56)
--- NOTE | 2020-08-27 14:49 | NUR ---
Patient is tolerating tube feeding well. No residuals noted. Patient is now running at 30 mls /hr. Family still at bedside. Will continue to monitor.
[2020-08-27 15:29] VITALS: BP 92/46
[2020-08-27] MEDS ORDERED: NITROGLYCERIN 0.4 MG/TAB BOTTLE SL PRN (17:45)
--- NOTE | 2020-08-27 17:45 | NUR ---
Patient is complaining of chest pain of 5/10. He reports sharp pain that comes and goes. Made MD aware. Orders are EKG, troponin stat and nitroglycerin sublingual.
[2020-08-27] MEDS: MIDODRINE HCL 5 MG TABLET PEG SCH (18:00)
--- NOTE | 2020-08-27 18:00 | NUR ---
Held Nitro because patient blood pressure was 92/46. Gave midodrine as scheduled. Will reassess blood pressure to see if nitro can be administered. Will continue to monitor.
--- NOTE | 2020-08-27 18:55 | NUR ---
Patient is left resting in bed no sign of distress noted. Gave medication as ordered. Patient is stilling running tube feedings with no residuals. Safety precautions are in place. Will endorse to the oncoming shift.
[2020-08-27 20:03] VITALS: BP 95/49
[2020-08-28 04:03] VITALS: BP 91/44
[2020-08-28] MEDS: PANTOPRAZOLE ORAL SUSPENSION 40 MG SUSPDR.PKT PEG SCH (05:40)
--- NOTE | 2020-08-28 06:36 | NUR ---
Pt slept throughout the night. No discomfort noted. Residual checked on GTube feeding, no residual. Pressure dressing changed on GTube, partial saturation with blood on dressing noted, new dressing applied. Feeding increased to 40cc, tolerating well. Feeding stopped at 0600H and to resume at 0800H. IV intact and patent running ordered fluids. Safety and comfort provided, no other issues or concerns at this time. Will endorse to day shift.
[2020-08-28 06:50] LABS: CREATININE 0.7 mg/dL (0.6-1.3); POTASSIUM 3.3 mmol/L (3.5-5.1)
[2020-08-28] MEDS: HALOPERIDOL LACTATE 5 MG/1 ML VIAL IM SCH ×2 (08:00→13:00)
[2020-08-28] MEDS: MEGESTROL ACETATE 400 MG/10 ML LIQUID UDC PEG SCH (08:00)
[2020-08-28] MEDS: MIDODRINE HCL 5 MG TABLET PEG SCH ×2 (08:00→16:06)
[2020-08-28] MEDS: NUTRISOURCE FIBER 4 GM PACKET PEG SCH ×3 (08:00→16:06)
[2020-08-28 08:33] LABS: BASOPHILS % (AUTO) 0.5 % (0.0-2.0); EOSINOPHILS % (AUTO) 0.4 % (0.0-7.0); HEMOGLOBIN 10.6 g/dL (12.5-16.3); LYMPHOCYTES # (AUTO) 1.4 K/uL (20.0-40.0); LYMPHOCYTES % (AUTO) 19.4 % (20.5-51.5); MEAN CORPUSCULAR HEMOGLOBIN 31.4 uug (23.8-33.4); MEAN CORPUSCULAR HGB CONC 34 g/dL (32.5-36.3); MEAN CORPUSCULAR VOLUME 91.5 fL (73.0-96.2); MONOCYTES # (AUTO) 0.4 K/uL (2.0-10.0); MONOCYTES % (AUTO) 4.9 % (0.0-11.0); NEUTROPHILS # (AUTO) 5.4 K/uL (1.8-8.9); NEUTROPHILS % (AUTO) 74.8 % (38.5-71.5); PLATELET COUNT (AUTO) 135 K/uL (152-348); RED BLOOD CELL COUNT(AUTO) 3.39 MIL/uL (4.06-5.63); WHITE BLOOD COUNT (AUTO) 7.2 K/uL (3.6-10.2)
[2020-08-28] MEDS ORDERED: VENLAFAXINE XR 75 MG TAB.ER.24H PO SCH (09:00)
[2020-08-28] MEDS ORDERED: POTASSIUM CHLORIDE 20 MEQ POWDER PACKET PEG ONE (09:15)
[2020-08-28] MEDS: VENLAFAXINE 25 MG TABLET PEG SCH ×2 (10:23→20:20)
[2020-08-28 11:44] VITALS: BP 95/46
[2020-08-28 14:26] VITALS: BP 95/55
[2020-08-28] MEDS: risperiDONE 1 MG TABLET PEG SCH (16:06)
[2020-08-28] MEDS: JEVITY 1.2 1000 ML LIQUID PEG PRN (16:27)
--- NOTE | 2020-08-28 19:30 | NUR ---
RECEIVED PT IN NO ACUTE DISTRESS. PT SISTER AT BEDSIDE. PT WITHDRAWN. PT GTUBE FEEDING TOLERATING WELL. IV INTACT. SAFETY AND COMFORT PROVIDED. WILL CONTINUE TO MONITOR.
[2020-08-28 20:00] VITALS: BP 90/54
[2020-08-28 20:15] VITALS: BP 118/51
[2020-08-29 04:00] VITALS: BP 110/52
[2020-08-29] MEDS: PANTOPRAZOLE ORAL SUSPENSION 40 MG SUSPDR.PKT PEG SCH (06:05)
--- NOTE | 2020-08-29 06:16 | NUR ---
PT SLEPT INTERMITTENTLY. PT IN NO ACUTE DISTRESS. PRESCRIBED MEDICATION GIVEN AND PT TOLERATED IT WELL. SAFETY AND COMFORT PROVIDED. PT GTUBE INTACT. DRESSING INTACT ON ABDOMEN. PT REFUSING BLOOD DRAWN. ALL NEEDS ARE MET. VITAL SIGNS WITHIN NORMAL LIMIT. WILL ENDORSE TO INCOMING NURSE FOR CONTINUITY OF CARE.
--- NOTE | 2020-08-29 07:30 | NUR ---
Received patient in bed alert and oriented selectively mute, withdrawn with a flat affect. Patient is on room air. No sign of respiratory distress noted. Patient's PEG tube placement is dry and intact. PEG tube flushes and is intact. No tube feeding running at this time, will start later. Safety precautions are in place. Will continue to monitor.
[2020-08-29] MEDS: MEGESTROL ACETATE 400 MG/10 ML LIQUID UDC PEG SCH (09:32)
[2020-08-29] MEDS: VENLAFAXINE 25 MG TABLET PEG SCH ×2 (09:32→20:23)
[2020-08-29] MEDS: NUTRISOURCE FIBER 4 GM PACKET PEG SCH ×3 (09:33→17:48)
[2020-08-29] MEDS: risperiDONE 1 MG TABLET PEG SCH ×2 (09:33→17:48)
[2020-08-29] MEDS: MIDODRINE HCL 5 MG TABLET PEG SCH ×2 (09:42→17:58)
[2020-08-29] MEDS ORDERED: POTASSIUM CHLORIDE 20 MEQ POWDER PACKET GT ONE (11:30)
[2020-08-29 11:34] VITALS: BP 88/52
[2020-08-29 14:13] LABS: BASOPHILS % (AUTO) 0.4 % (0.0-2.0); CREATININE 0.7 mg/dL (0.6-1.3); EOSINOPHILS % (AUTO) 0.4 % (0.0-7.0); HEMATOCRIT 30.2 % (36.7-47.1); HEMOGLOBIN 10.1 g/dL (12.5-16.3); LYMPHOCYTES % (AUTO) 22.2 % (20.5-51.5); MEAN CORPUSCULAR HEMOGLOBIN 30.7 uug (23.8-33.4); MEAN CORPUSCULAR HGB CONC 34 g/dL (32.5-36.3); MEAN CORPUSCULAR VOLUME 91.4 fL (73.0-96.2); MONOCYTES # (AUTO) 0.3 K/uL (2.0-10.0); MONOCYTES % (AUTO) 7.6 % (0.0-11.0); NEUTROPHILS # (AUTO) 3.1 K/uL (1.8-8.9); NEUTROPHILS % (AUTO) 69.4 % (38.5-71.5); PLATELET COUNT (AUTO) 126 K/uL (152-348); POTASSIUM 4.3 mmol/L (3.5-5.1); WHITE BLOOD COUNT (AUTO) 4.5 K/uL (3.6-10.2)
[2020-08-29 16:00] VITALS: BP 97/48
[2020-08-29] MEDS: CELLULOSE,OXIDIZED 2x3 MC ONE (17:58)
--- NOTE | 2020-08-29 18:52 | NUR ---
Patient is left resting in bed no sign of distress noted. Gave medication as ordered. Patient refused dressing change. Dressing is currently dry and intact. Patient is stilling running tube feedings with no residuals. Safety precautions are in place. Will endorse to the oncoming shift.
[2020-08-29 20:39] VITALS: BP 87/43
--- NOTE | 2020-08-29 22:50 | NUR ---
Received patient resting in bed, AAOx4. Pressures speech. Sister at bedside. On RA denies SOB and Chest pain. Right FA IV patent and intact. Jevity 1.2 Tube Feeding running at 70mls/hr, placement auscultated and gastric residual 20mls. Abdominal dressing clean and intact. Safety measures in place, bed locked in lowest position with alarm on.
[2020-08-30 05:27] VITALS: BP 91/49
[2020-08-30] MEDS: PANTOPRAZOLE ORAL SUSPENSION 40 MG SUSPDR.PKT PEG SCH (05:39)
[2020-08-30] MEDS: CELLULOSE,OXIDIZED 2x3 MC ONE (05:59)
--- NOTE | 2020-08-30 06:37 | NUR ---
Patient resting in bed. No s/s of acute distress noted at this time. Patient compliant with medications. Abdominal PEG dressing changed, clean and dry with scant blood present. Patient tolerated Tube Feeding well, residual this morning 10 mls. Feeding paused at 0600 and to resume at 0800 per orders rate continues at 70mls/hr. All patient needs met and attended to. Safety measures in place and will endorse to oncoming nurse.
[2020-08-30 08:00] VITALS: BP 89/48
--- NOTE | 2020-08-30 08:00 | NUR ---
Received change of shift report, pt in bed resting c/o of dehydration. a/o x4, pt has gtube, Jevity 1.2 at 70cc, on room air, no signs of distress, no reports of pain at this time. pt is ambulatory with assist. pt has IV access on the right FA 20g saline lock. bed low and locked, bed alarm on, call light within reach, family at bedside. Will continue to monitor.
[2020-08-30] MEDS: MEGESTROL ACETATE 400 MG/10 ML LIQUID UDC PEG SCH (08:29)
[2020-08-30] MEDS: MIDODRINE HCL 5 MG TABLET PEG SCH ×2 (08:32→17:34)
[2020-08-30] MEDS: risperiDONE 1 MG TABLET PEG SCH ×2 (08:32→17:34)
[2020-08-30] MEDS: VENLAFAXINE 25 MG TABLET PEG SCH (08:35)
[2020-08-30] MEDS: NUTRISOURCE FIBER 4 GM PACKET PEG SCH ×3 (08:35→17:34)
[2020-08-30] MEDS: JEVITY 1.2 1000 ML LIQUID PEG PRN (10:12)
[2020-08-30] MEDS ORDERED: APIXABAN 5 MG TABLET PEG SCH (11:00)
[2020-08-30 12:00] VITALS: BP 108/65
[2020-08-30 16:00] VITALS: BP 92/58
[2020-08-30 19:30] VITALS: BP 94/55
--- NOTE | 2020-08-30 19:30 | NUR ---
PT LEFT HOSPITAL AMA, SISTER REFUSED TO ACCEPT DELIVERY OF HOME HEALTH AND TUBE FEEDINGS TO PT. PT SISTER (GREG) WANTED PT TO BE TRANSFERRED TO [facility], HOWEVER THE PT WAS ALREADY DISCHARGED FROM THE HOSPITAL AND CASE MANAGEMENT, [facility], WAS HELPING SISTER SET UP HOME HEALTH AND AMBULANCE TRANSPORTATION FOR [facility]. THE SISTER REFUSED TO SET UP DELIVERY TIME OF TUBE FEEDINGS AND WAS THEN MADE AWARE SHE WOULD HAVE TO SIGN AN AMA FORM AND SISTER AGREED. THE FORMS WERE PRINTED AND READY FOR THE SISTER TO SIGN, WHEN I PRESENTED THE FORMS TO THE SISTER AND EXPLAINED WHAT THEY WERE AGAIN, SHE REFUSED AND STATED "YOU (THE RN) IS LETTING HIM LEAVE". I EXPLAINED TO HER AGAIN ( SHE HELD UP HER PHONE ON SPEAKER) THAT ALTHOUGH HE WAS DC'D THAT NO LONGER APPLIES BECAUSE SHE IS REFUSING TO ACCEPT HOME HEALTH SERVICES AND TUBE FEEDING DELIVERY, SHE IS TAKING THE PT AMA, IN HER PRIVATE CAR. THE SISTER THEN PULLED THE FORMS FROM MY HAND AND TOOK HER TIME TO READ AND SIGN THE FORMS, SHE WROTE NOTES ON THE FORM ABOUT STATEMENT WHICH ARE FALSE REGARDING THE PT CARE. STEPHEN HORN SAW PT THIS MORNING AND EXPLAINED EVERYTHING IN GREAT DETAIL TO THE SISTER. AN EXPLANATION OF OPTIONS AND RISK OF GOING AMA WERE DISCUSSED IN DETAIL WITH SISTER. KORY, AND GEORGE MADE AWARE OF SITUATION. GREG, PT SISTER, TOOK PT IN HER PRIVATE CARE, TO TAKE HIM TO [facility], IN APPARENTLY FAIR CONDITION, NO DISTRESS NOTED. PT LEFT WITH ALL BELONGINGS.
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
== END 2020-08-30 19:30 | disposition left against medical advice (07) | DRG 421 ==
LOC: ER 01:51 → TELE3 04:23 → MEDSURG3 08-20 19:53
PROVIDERS: ADMIT Internal Medicine; ATTEND Nurse Practitioner Acute Care
PROC: 0DH63UZ Insertion of Feeding Device into Stomach, Percutaneous Approach (ICD-10-PCS; principal; 2020-08-25)
DX: R62.7 Adult failure to thrive (principal); N17.0 Acute kidney failure with tubular necrosis; E43 Unspecified severe protein-calorie malnutrition; G93.49 Other encephalopathy; I95.89 Other hypotension; F33.3 Major depressive disorder, recurrent, severe with psychotic symptoms; R13.10 Dysphagia, unspecified; D68.59 Other primary thrombophilia; E86.0 Dehydration; Z68.1 Body mass index [BMI] 19.9 or less, adult; K59.09 Other constipation; E78.5 Hyperlipidemia, unspecified; E83.39 Other disorders of phosphorus metabolism; E87.6 Hypokalemia; Z86.711 Personal history of pulmonary embolism; K29.70 Gastritis, unspecified, without bleeding; Z20.822 Contact with and (suspected) exposure to COVID-19; Z74.09 Other reduced mobility; Z79.01 Long term (current) use of anticoagulants; E88.09 Other disorders of plasma-protein metabolism, not elsewhere classified; H91.90 Unspecified hearing loss, unspecified ear
CPT/HCPCS: 36415; 43761; 70030-TC; 70450; 71045; 74018; 83605; 83690; 83735; 84100; 84443; 85025; 85730; 87040; 93005; A4217; A4663; G0378; J1630; J1650; J2001; J2250; J2358; J3480; J3490; J7030; J7042; J7060; J8999; U0003

== ENCOUNTER 2025-02-26 23:17 | Emergency (ER) | payer MEDICARE, OTHER ==
[~2025-02-26] VITALS: Ht 170.2 cm; Wt 52.2 kg
[~2025-02-26 23:17] MED LIST: APIX5TAB PO; BUPR75TA8 PO; MIDO5TAB5 PO; MIRT-93 PO
[2025-02-26] MEDS ORDERED: LORA0.5T48 PO (23:24)
[2025-02-26 23:35] LABS: PLATELET COUNT (AUTO) 191 K/uL (152-348); RED BLOOD CELL COUNT(AUTO) 4.45 MIL/uL (4.06-5.63); RED CELL DISTRIBUTION WIDTH 14.1 % (12.1-16.2); WHITE BLOOD COUNT (AUTO) 7.6 K/uL (3.6-10.2)
[2025-02-26 23:42] LABS: CREATININE 1.6 mg/dL (0.6-1.3); SODIUM SERUM 144 mmol/L (136-145); UREA NITROGEN, BLOOD 26 mg/dL (7-18)
[2025-02-26 23:48] LABS: ASPARTATE AMINOTRANSFERASE 20 U/L (15-37); TOTAL PROTEIN, SERUM 7.7 g/dL (6.4-8.2)
[2025-02-26] MEDS: IV NORMAL SALINE 1000 ML BAG IV ONE (23:52)
[2025-02-26 23:56] LABS: ETHANOL < 3 MG/DL (0-10)
[2025-02-27 00:19] LABS: *BILIRUBIN,URIN NEGATIVE (NEGATIVE); *CLARITY,URINE CLEAR (CLEAR); *COLOR,URINE YELLOW (YELLOW); *KETONES,URINE NEGATIVE (NEGATIVE); *PROTEIN,URINE NEGATIVE (NEGATIVE); *UROBILINOGEN,URINE 0.2 E.U./dl (NORMAL); LEUKOCYTE ESTERASE ,URINE NEGATIVE (NEGATIVE); NITRITE, URINE NEGATIVE (NEGATIVE); UGLUCOSE NEGATIVE (NEGATIVE)
[2025-02-27 00:20] LABS: *BLOOD, URINE TRACE (NEGATIVE)
[2025-02-27 00:27] LABS: *AMPHETAMINE, URINE NEGATIVE (NEGATIVE); *BARBITURATE, URINE NEGATIVE (NEGATIVE); *BENZODIAZEPINE, URINE NEGATIVE (NEGATIVE); *CANNABINOID, URINE NEGATIVE (NEGATIVE); *COCCAINE, URINE NEGATIVE (NEGATIVE); *OPIATE, URINE NEGATIVE (NEGATIVE); *PHENCYCLIDINE SCREEN,URINE NEGATIVE (NEGATIVE); FENTANYL, URINE NEGATIVE (NEGATIVE)
[2025-02-27] MEDS ORDERED: OLANZAPINE 5 MG TABLET ONE (00:39)
[2025-02-27] MEDS ORDERED: LORAZEPAM 0.5 MG TABLET ONE (00:39)
[2025-02-27] MEDS: LORAZEPAM 0.5 MG TABLET PO ONE (00:43)
[2025-02-27] MEDS: OLANZAPINE 5 MG TABLET PO ONE (02:22)
[2025-02-27 08:00] VITALS: BP 122/78; O2SAT 100
== END 2025-02-27 08:07 ==
LOC: ER 23:18
DX: R45.851 Suicidal ideations (principal); F32.A Depression, unspecified; I51.9 Heart disease, unspecified; Z79.01 Long term (current) use of anticoagulants; Z79.899 Other long term (current) drug therapy; Z86.711 Personal history of pulmonary embolism; Z88.0 Allergy status to penicillin; Z88.1 Allergy status to other antibiotic agents; Z20.822 Contact with and (suspected) exposure to COVID-19
CPT/HCPCS: 80076; 80048; 84443; 85025; 87426; 36415; 99285; 96360; 96361; 80299; 80320; 80307; 81001; J7040; A4606; A4663; G0480